=== PATIENT | female | born 1990 | race Caucasian/White ===

== ENCOUNTER 2022-11-03 08:35 | Outpatient (CLI) | payer BC, SELFPAY ==
--- NOTE | ~2022-11-03 | MR_ITS ---
EXAMINATION: MR brain/brain stem wo/w con DATE: 11/03/2022 09:30 INDICATION: CVA sx TECHNIQUE: Magnetic resonance imaging (MRI) of the brain and brainstem was performed without and with 15 mL of MultiHance intravenous contrast. Sequences included sagittal and axial T1-weighted SE, axia l diffusion-weighted FS EPI ASSET, axial T2*-weighted GRE, axial T2-weighted FLAIR Propeller, and axi al T2-weighted Propeller. Postcontrast axial and coronal T1-weighted SE was obtained. Apparent diffus ion coefficient (ADC) maps were created. COMPARISON: None. FINDINGS: No abnormal restricted diffusion to suggest acute ischemic infarct. No MRI evidence of hemorrhage or extra-axial collection. No suspicious foci of susceptibility to suggest prior intraparenchymal hemorr marty. Normal white matter signal. No abnormal enhancement. No evidence of advanced or lobar predomina nt parenchymal volume loss. The basilar cisterns are patent. Flow voids are preserved. Paranasal sinu ses are within normal limits. Globes and orbital contents are within normal limits. IMPRESSION: Normal MR brain findings. Reviewed, dictated and finalized at location K. IMPRESSION: Normal MR brain findings.
== END 2022-11-03 08:36 | disposition home or self-care (01) ==
PROVIDERS: PCP Family Medicine; Visit Provider Nurse Practitioner Family
DX: R29.90 Unspecified symptoms and signs involving the nervous system (principal)
CPT/HCPCS: 70553; A9577